=== PATIENT | male | born 1995 | race Caucasian/White ===

== ENCOUNTER 2020-03-15 09:37 | Emergency (ER) | payer BC ==
[~2020-03-15] VITALS: Ht 185.4 cm; Wt 86.2 kg
[2020-03-15 09:57] VITALS: BP 129/86
--- NOTE | 2020-03-15 10:02 | NUR ---
ED Nurse Note: Patient from home walked in to ER due to left eye irritation, ocassional tearing, blurring of vision since yesterday.
[2020-03-15] MEDS ORDERED: Tetracaine 0.5% Opth 4ml Soln LEFT EYE ONE (10:15)
[2020-03-15] MEDS ORDERED: OCUFLOX5 ML LEFT EYE (10:40)
[2020-03-15 10:47] VITALS: BP 122/70
--- NOTE | 2020-03-15 10:47 | NUR ---
ER DISCHARGE NOTE: Patient is cleared to be discharged per ERMD, pt is aox4, on room air, with stable vital signs. pt was given dc and prescription instructions, pt was able to verbalize understanding, pt id band removed. pt is able to ambulate with steady gait. pt took all belongings.
--- NOTE | 2020-03-15 11:45 | Emergency Room Report ---
History of Present Illness General Chief Complaint: Eye Problems Source: Patient Present Illness HPI 24-year-old male presents complaining of left eye redness and pain. Started yesterday. Patient was wearing his contacts at the time and his pain started suddenly. Denies any foreign body to the eye. Throbbing, 7 out of 10, nonradiating. Notes redness and tearing to the eye. Denies photophobia or blurry vision. Denies fevers or chills. No other aggravating relieving factors. Denies any other associated symptoms Allergies: Coded Allergies: No Known Allergies (Unverified , 03/15/20) COVID-19 Screening Contact w/high risk pt: No Recent Travel to affected area: No Experienced COVID-19 symptoms?: No COVID-19 Testing performed [employer]ENT[employer]IVE: No Patient History Past Medical History: none Past Surgical History: none Pertinent Family History: none Social History: Denies: smoking, alcohol use, drug use Immunizations: UTD Reviewed Nursing Documentation: PMH: Agreed; PSxH: Agreed Nursing Documentation-PMH Past Medical History: No Stated History Review of Systems All Other Systems: negative except mentioned in HPI Physical Exam Vital Signs Date Time Temp Pulse Resp B/P (MAP) Pulse Ox O2 Delivery O2 Flow Rate FiO2 03/15/20 09:42 98.2 56 16 129/86 (100) 96 Room Air Sp02 EP Interpretation: reviewed, normal General Appearance: no apparent distress, alert, GCS 15, non-toxic Head: normocephalic, atraumatic Eyes: left eye Scleral Injection - redness L eye. clear discharge noted; bilateral eye PERRL ENT: hearing grossly normal, normal pharynx, no angioedema, normal voice Neck: full range of motion, supple/symm/no masses Respiratory: chest non-tender, lungs clear, normal breath sounds, speaking full sentences Cardiovascular #1: regular rate, rhythm, no edema Cardiovascular #2: 2+ carotid (R), 2+ carotid (L), 2+ radial (R), 2+ radial (L) , 2+ dorsalis pedis (R), 2+ dorsalis pedis (L) Gastrointestinal: normal bowel sounds, non tender, soft, non-distended, no guarding, no rebound Rectal: deferred Genitourinary: normal inspection, no CVA tenderness Musculoskeletal: back normal, normal range of motion, gait/station normal, non- tender Neurologic: alert, motor strength/tone normal, oriented x3, sensory intact, responsive, speech normal Psychiatric: judgement/insight normal, memory normal, mood/affect normal, no suicidal/homicidal ideation Reflexes: 3+ bicep (R), 3+ bicep (L), 3+ tricep (R), 3+ tricep (L), 3+ knee (R) , 3+ knee (L) Skin: no rash Lymphatic: no adenopathy Medical Decision Making Diagnostic Impression: Primary Impression: Conjunctivitis Qualified Codes: H10.9 - Unspecified conjunctivitis ER Course Hospital Course 24-year-old M presents to ED with L eye redness and watery discharge Differential diagnoses include: conjunctivitis, traumatic iritis, foreign body, corneal abrasion Clinical course Patient placed on stretcher. After initial history, physical exam revealed a male no acute distress. There is injected conjunctiva L eyes. Pupils equally reactive to light bilaterally. No evidence of foreign body. Clinical findings consistent with conjunctivitis. I discussed findings with patient. Will discharge home with antibiotics. Patient having discomfort during ED course. Given tetracaine for temporary relief. Safe for discharge for close outpatient follow-up. I will provide optho referrals Diagnosis - conjunctivitis Stable and discharged to home with prescription for Ocuflox. Followup with PMD/ Optho. Return to ED if symptoms recur or worsen Last Vital Signs Date Time Temp Pulse Resp B/P (MAP) Pulse Ox O2 Delivery O2 Flow Rate FiO2 03/15/20 10:47 98.0 79 15 122/70 99 Room Air Status: improved Disposition: HOME, SELF-CARE Condition: Stable Scripts Ofloxacin (OCUFLOX) 5 Ml Drops 1 DROP LEFT EYE QID for 7 Days, ML Prov: Wilberto Sutherland MD 03/15/20 Referrals: Thad Ly MD Patient Instructions: Bacterial Conjunctivitis, [id number] Wilberto Sutherland MD Mar 15, 2020 11:45
== END 2020-03-15 10:47 | disposition home or self-care (01) ==
LOC: EMR 10:05
DX: H10.9 Unspecified conjunctivitis (principal)
CPT/HCPCS: 99282